=== PATIENT | female | born 1970 | race Caucasian/White ===

== ENCOUNTER → 2016-11-30 | Outpatient (CLI) | payer BC ==
--- NOTE | 2016-11-30 17:28 | RADIOLOGY REPORT (SQ) ---
EXAM DESCRIPTION: CHEST PA/LATERAL COMPLETED DATE/TIME: 11/30/2016 5:08 pm REASON FOR STUDY: COUGH COMPARISON: None. EXAM PARAMETERS: NUMBER OF VIEWS: two views TECHNIQUE: Digital Frontal and Lateral radiographic views of the chest acquired. RADIATION DOSE: NA LIMITATIONS: none FINDINGS: LUNGS AND PLEURA: No opacities, masses or pneumothorax. No pleural effusion. MEDIASTINUM AND HILAR STRUCTURES: No masses or contour abnormalities. HEART AND VASCULAR STRUCTURES: Heart normal size. No evidence for failure. BONES: No acute findings. HARDWARE: None in the chest. OTHER: No other significant finding. IMPRESSION: NO SIGNIFICANT RADIOGRAPHIC FINDING IN THE CHEST. TECHNICAL DOCUMENTATION: JOB ID: [id number] [email or web address]- All Rights Reserved
--- NOTE | 2016-11-30 18:17 | EKG REPORT ---
SEVERITY:- NORMAL ECG - SINUS RHYTHM : Confirmed by: Lucas Irizarry MD 30-Nov-2016 18:16:33
[2016-11-30 18:26] LABS: ABSOLUTE EOSINOPHILS # (AUTO) 0.1 10^3/uL (0.0-0.6); ABSOLUTE LYMPHOCYTES (AUTO) 1.7 10^3/uL (0.5-4.7); ABSOLUTE MONOCYTES (AUTO) 0.5 10^3/uL (0.1-1.4); ABSOLUTE NEUT (AUTO) 3.6 10^3/uL (1.7-8.2); BASOPHILS % (AUTO) 0.7 % (0-2); EOSINOPHILS % (AUTO) 2.3 % (0-6); HEMATOCRIT 38.8 % (36.0-47.0); HEMOGLOBIN 12.6 g/dL (12.0-15.5); LYMPHOCYTES % (AUTO) 28.8 % (13-45); MEAN CORPUSCULAR HEMOGLOBIN 25.2 pg (27.0-33.4); MEAN CORPUSCULAR HGB CONC 32.6 g/dL (32.0-36.0); MEAN CORPUSCULAR VOLUME 77 fl (80-97); MONOCYTES % (AUTO) 7.7 % (3-13); RED BLOOD COUNT 5.01 10^6/uL (3.72-5.28); RED CELL DISTRIBUTION WIDTH 15.1 % (11.5-14.0); SEGMENTED NEUTROPHILS % (AUTO) 60.5 % (42-78); WHITE BLOOD COUNT 5.9 10^3/uL (4.0-10.5)
[2016-11-30 18:47] LABS: ALANINE AMINOTRANSFERASE 53 U/L (9-52); ALBUMIN 4.4 g/dL (3.5-5.0); ALKALINE PHOSPHATASE 150 U/L (38-126); ANION GAP 13 (5-19); ASPARTATE AMINO TRANSFERASE 41 U/L (14-36); BILIRUBIN,DIRECT 0.4 mg/dL (0.0-0.4); BILIRUBIN,TOTAL 0.4 mg/dL (0.2-1.3); BLOOD UREA NITROGEN 12 mg/dL (7-20); CALCIUM 9.5 mg/dL (8.4-10.2); CARBON DIOXIDE 25 mmol/L (22-30); CHLORIDE 102 mmol/L (98-107); CREATININE RESULT 0.53 mg/dL (0.52-1.25); GLUCOSE 226 mg/dL (75-110); POTASSIUM 4.4 mmol/L (3.6-5.0); SODIUM 140.4 mmol/L (137-145); TOTAL PROTEIN 7.7 g/dL (6.3-8.2)
== END ==
LOC: OD 16:30
PROVIDERS: ATTEND Nurse Practitioner Family
DX: E66.01 Morbid (severe) obesity due to excess calories (principal); R03.0 Elevated blood-pressure reading, without diagnosis of hypertension; R05 Cough; R06.2 Wheezing
CPT/HCPCS: 36415; 71020; 80053; 80074; 83036; 84443; 84484; 85025; 87040; 93005; 93010

== ENCOUNTER 2019-08-30 10:10 | Outpatient (CLI) | payer BC ==
[2019-08-30] MEDS ORDERED: FERRIC CARBOXYMALTOSE 750 MG in NORMAL SALINE 250 ML IV PRN (10:22)
[2019-08-30] MEDS ORDERED: NORMAL SALINE 250 ML IV PRN (10:30)
[2019-08-30 10:44] VITALS: BP 125/55
== END 2019-08-30 11:34 | disposition home or self-care (01) ==
LOC: II 10:10 → 5TH 10:16 → II 11:34
PROVIDERS: ATTEND Internal Medicine Hematology & Oncology
DX: D50.9 Iron deficiency anemia, unspecified (principal); K90.9 Intestinal malabsorption, unspecified
CPT/HCPCS: 96365; J7050; J1439

== ENCOUNTER 2019-09-06 09:54 | Outpatient (CLI) | payer BC ==
[~2019-09-06 09:54] MED LIST: FERRIC CARBOXYMALTOSE 750 MG in NORMAL SALINE 250 ML IV PRN; NORMAL SALINE 250 ML IV PRN
[2019-09-06 10:16] VITALS: BP 111/48
== END 2019-09-06 10:47 | disposition home or self-care (01) ==
LOC: II 09:54 → 5TH 09:56 → II 10:47
PROVIDERS: ATTEND Internal Medicine Hematology & Oncology
DX: D50.9 Iron deficiency anemia, unspecified (principal); K90.9 Intestinal malabsorption, unspecified
CPT/HCPCS: 96365; J7050; J1439

== ENCOUNTER → 2019-11-15 | Outpatient (CLI) | payer BC ==
--- NOTE | 2019-11-15 09:01 | RADIOLOGY REPORT (SQ) ---
EXAM DESCRIPTION: MRI ABDOMEN WITHOUT IMAGES COMPLETED DATE/TIME: 11/15/2019 7:48 am REASON FOR STUDY: K86.89 OTHER SPECIFIED DISEASES OF PANCREAS K86.89 OTHER SPECIFIED DISEASES OF PA NCREAS COMPARISON: None. TECHNIQUE: Noncontrast MRCP. Source and MIP images reviewed. LIMITATIONS: Motion. FINDINGS: GALLBLADDER: Normal. INTRAHEPATIC DUCTS: Nondilated. EXTRAHEPATIC DUCTS: Common duct is normal caliber. No dilatation of the pancreatic duct. No ductal filling defects noted. PANCREAS: 1.5 cm nodule in the body. No ductal dilatation. LIVER, SPLEEN, KIDNEYS, ADRENALS: No significant abnormality. VESSELS: No evidence of aneurysm. Grossly appropriate flow voids in the major vascular structures. LUNG BASES: Bilateral lung nodules. OTHER: Adenopathy celiac and SMA axis. IMPRESSION: 1. Normal hepatobiliary system. 2. Pancreatic nodule. Regional adenopathy. 3. Pulmonary nodules suspicious for metastatic disease. TECHNICAL DOCUMENTATION: JOB ID: [id number] 2010 [employer]- All Rights Reserved Reading location - IP/workstation name: [email or web address]
== END ==
LOC: RAD 06:56
PROVIDERS: ATTEND Nurse Practitioner Family
DX: K86.89 Other specified diseases of pancreas (principal)
CPT/HCPCS: 74181

== ENCOUNTER → 2019-12-04 | Outpatient (CLI) | payer BC ==
--- NOTE | 2019-12-04 16:07 | RADIOLOGY REPORT (SQ) ---
EXAM DESCRIPTION: PET CT SKULL/THIGH IMAGES COMPLETED DATE/TIME: 12/04/2019 2:45 pm REASON FOR STUDY: K86.9 DISEASE OF PANCREAS, UNSPECIFIED R91.1 SOLITARY PULMONARY NODULE K86.9 DISE ASE OF PANCREAS, UNSPECIFIED R91.1 SOLITARY PULMONARY NODULE COMPARISON: MRI abdomen dated 11/15/2019 RADIONUCLIDE AND DOSE: 9.82 mCi F18 FDG The route of agent administration: Intravenous FASTING BLOOD SUGAR: 138 mg/dl CONTRAST TYPE AND DOSE: No CT contrast given. TECHNIQUE: Blood glucose level was verified. Above dose of FDG was injected intravenously. 2-D seg mented attenuation correction images were obtained from the base of the skull to the midthighs. Nonc ontrast CT images were obtained for attenuation correction and fusion with emission images. CT image s were performed without oral or intravenous contrast and are not sensitive for parenchymal lesions. A series of overlapping emission PET images were obtained. Images reviewed and manipulated at [facility] work station by the radiologist. Images stored on PACS. LIMITATIONS: None. FINDINGS: HEAD AND NECK: No areas of abnormal metabolic activity in the soft tissues of the head and neck. CHEST: Abnormal uptake in enlarged right mediastinal nodes. SUV ranges between 6 and 8 consistent wi th neoplasm. There is increased uptake in the left lower lobe pulmonary nodule. SUV is 3.55. SUV i n the right lower lobe pulmonary nodules is just above 3. ABDOMEN AND PELVIS: Increased activity in the region of the pancreatic head. SUV is greater than 6 c onsistent with neoplasm. These appear to represent peripancreatic nodes rather than abnormal uptake in the pancreas itself. Numerous smaller peripancreatic as well as periaortic nodes are noted. Most are metabolically inactive. A small node on image 149 demonstration SUV of 5.86. Additional periao rtic nodes demonstrated SUVs of just under 5 consistent with metastatic disease. PROXIMAL LOWER EXTREMITIES: No areas of abnormal metabolic activity in the soft tissues of the lower extremities. BONES: No abnormal metabolic activity in the visualized skeleton. ADDITIONAL CT FINDINGS: No additional significant findings on the noncontrast CT images. OTHER: No other significant findings. IMPRESSION: 1. Abnormal uptake in the right and left lower lobe pulmonary nodules consistent with me tastatic disease. There is right mediastinal adenopathy with an SUV range between 6 and 8 consistent with metastatic disease as well. 2. Multiple areas of increased metabolic activity surrounding the pancreatic head and aorta. These appear to represent periaortic as wells peripancreatic nodes and demonstrate activity suspicious for metastatic disease. No definite abnormal uptake within the pancreatic head itself. TECHNICAL DOCUMENTATION: JOB ID: [id number] 2010 [email or web address]- All Rights Reserved Reading location - IP/workstation name: [email or web address]
== END ==
LOC: RAD 07:41
PROVIDERS: ATTEND Surgery
DX: R91.1 Solitary pulmonary nodule (principal); K86.9 Disease of pancreas, unspecified
CPT/HCPCS: 78815; A9552

== ENCOUNTER 2020-01-24 20:44 | Emergency (ER) | payer OTHER, BC ==
[2020-01-24 20:56] VITALS: BP 133/67
[2020-01-24] MEDS ORDERED: NAPROXEN 250 MG TABLET PO ONE (21:04)
--- NOTE | 2020-01-24 21:04 | ER Document Report ---
HPI - HPI Patient complains to provider of: fall, knee pain Time Seen by Provider: 01/24/20 20:55 Pain Level: 3 Notes: 39-year-old female to emergency department with complaints of right knee pain that began tonight just prior to arrival. She states she was walking into the refrigerator at work when she tripped and fell landing on the right knee. She thinks she may have twisted down on it. She can walk on it but it does give her pain. She not taken anything for pain since the incident happened. She does not admit to hitting her head or having loss of consciousness. She denies any hip pain or back pain. - ROS Systems Reviewed and Negative: Yes All other systems reviewed and negative - CONSTITUTIONAL Constitutional: DENIES: Fever, Chills - EENT EENT: DENIES: Sore Throat, Ear Pain, Congestion - NEURO Neurology: DENIES: Headache, Weakness - CARDIOVASCULAR Cardiovascular: DENIES: Chest pain - RESPIRATORY Respiratory: DENIES: Trouble Breathing, Coughing - GASTROINTESTINAL Gastrointestinal: DENIES: Abdominal Pain, Nausea, Patient vomiting, Diarrhea - MUSCULOSKELETAL Musculoskeletal: REPORTS: Extremity pain - Right knee pain - DERM Skin Color: Normal Skin Problems: None Past Medical History - General Information source: Patient - Social History Smoking Status: Never Smoker Chew tobacco use (# tins/day): No Frequency of alcohol use: None Drug Abuse: None Family History: Reviewed & Not Pertinent - Past Medical History Cardiac Medical History: Reports: Hx Hypertension Denies: Hx Heart Attack Pulmonary Medical History: Denies: Hx Asthma Neurological Medical History: Denies: Hx Cerebrovascular Accident, Hx Seizures Endocrine Medical History: Reports: Hx Diabetes Mellitus Type 2 GI Medical History: Denies: Hx Hepatitis, Hx Hiatal Hernia, Hx Ulcer Infectious Medical History: Denies: Hx Hepatitis Past Surgical History: Denies: Hx Mastectomy, Hx Open Heart Surgery, Hx Pacemaker - Immunizations Hx Diphtheria, Pertussis, Tetanus Vaccination: Yes Vertical Provider Document - CONSTITUTIONAL Agree With Documented VS: Yes Exam Limitations: No Limitations General Appearance: WD/WN, No Apparent Distress - INFECTION CONTROL TRAVEL OUTSIDE OF THE [place] IN LAST 30 DAYS: No - HEENT HEENT: Atraumatic, Normocephalic, PERRLA - NECK Neck: Normal Inspection, Supple - RESPIRATORY Respiratory: Breath Sounds Normal, No Respiratory Distress. negative: Rales, Rhonchi, Wheezing - CARDIOVASCULAR Cardiovascular: Regular Rate, Regular Rhythm, No Murmur - GI/ABDOMEN Gastrointestinal: Abdomen Soft, Abdomen Non-Tender, No Organomegaly Notes: Obesity - BACK Back: Normal Inspection Notes: Nontender to palpation over the midline cervical, thoracic, lumbar spine with no step-off or deformity. - MUSCULOSKELETAL/EXTREMETIES Notes: There is tenderness to palpation over the anterior right knee joint with mild edema but no ecchymosis or deformity. She has full range of motion against resistance with 5 out of 5 strength in flexion extension. Nontender to palpation over the right hip, right ankle, foot. DP pulses intact and equal. - NEURO Level of Consciousness: Awake, Alert, Appropriate Motor/Sensory: No Motor Deficit, No Sensory Deficit - DERM Integumentary: Warm, Dry, No Rash Course - Vital Signs Vital signs: Temp Pulse Resp BP Pulse Ox 97.5 F 91 20 133/67 H 94 01/24/20 20:54 01/24/20 20:54 01/24/20 20:54 01/24/20 20:54 01/24/20 20:54 - Diagnostic Test Radiology reviewed: Image reviewed, Reports reviewed Discharge - Discharge Clinical Impression: Contusion of left lower leg, initial encounter Right knee sprain Qualifiers: Encounter type: initial encounter Involved ligament of knee: unspecified ligament Qualified Code(s): S83.91XA - Sprain of unspecified site of right knee, initial encounter Contusion of right knee Qualifiers: Encounter type: initial encounter Qualified Code(s): S80.01XA - Contusion of right knee, initial encounter Fall Qualifiers: Encounter type: initial encounter Qualified Code(s): W19.XXXA - Unspecified fall, initial encounter Condition: Stable Disposition: HOME, SELF-CARE Instructions: Ice & Elevation ([facility]), Sprained Knee ([facility]) Additional Instructions: Elevate the knee and ice it 3 times a day for 20 minutes at a time. Use Mychal wrap for support. If the knee is not improved in 1 week please follow-up with orthopedist. Take pain medicine as prescribed. Ice the lower left leg as well. Return if you have any worsening symptoms. Prescriptions: Cyclobenzaprine HCl [Flexeril 10 mg Tablet] 10 mg PO TID #15 tablet Naproxen [Naprosyn] 500 mg PO BID #20 tablet Forms: Return to Work Referrals: CARMEN KUHN JR, DO [ACTIVE PROVISIONAL STAFF] - Follow up in 1 week (for orthopedic follow up)
--- NOTE | 2020-01-24 22:11 | RADIOLOGY REPORT (SQ) ---
EXAM DESCRIPTION: X-ray left tibia and fibula 2 views COMPLETED DATE/TME: 01/24/2020 21:26 CLINICAL HISTORY: 49 years, Female, fall, left leg pain COMPARISON: None. NUMBER OF VIEWS: TECHNIQUE: LIMITATIONS: None. FINDINGS: No fracture or dislocation. There are degenerative changes involving the knee joint. Mineralization of bone appears normal. IMPRESSION: No fracture or dislocation. copyright 2010 [employer]- All Rights Reserved
--- NOTE | 2020-01-24 22:13 | RADIOLOGY REPORT (SQ) ---
EXAM DESCRIPTION: X-ray right knee 4 views COMPLETED DATE/TME: 01/24/2020 21:26 CLINICAL HISTORY: 49 years, Female, fall, right knee pain COMPARISON: None. NUMBER OF VIEWS: TECHNIQUE: LIMITATIONS: None. FINDINGS: No fracture or dislocation. No evidence of knee joint effusion. There are degenerative changes involving all 3 knee joint compartments. IMPRESSION: No fracture or dislocation. Degenerative changes. copyright 2010 [employer]- All Rights Reserved
== END 2020-01-24 23:00 | disposition home or self-care (01) ==
LOC: ER 20:44
DX: S83.91XA Sprain of unspecified site of right knee, initial encounter (principal); S80.12XA Contusion of left lower leg, initial encounter; S80.01XA Contusion of right knee, initial encounter; M25.561 Pain in right knee; W19.XXXA Unspecified fall, initial encounter; Y93.89 Activity, other specified; Y99.0 Civilian activity done for income or pay; I10 Essential (primary) hypertension; E11.9 Type 2 diabetes mellitus without complications
CPT/HCPCS: 99283

== ENCOUNTER → 2020-03-18 | Outpatient (CLI) | payer BC ==
--- NOTE | 2020-03-18 10:48 | RADIOLOGY REPORT (SQ) ---
EXAM DESCRIPTION: CT CHEST WITH IMAGES COMPLETED DATE/TIME: 03/18/2020 9:13 am REASON FOR STUDY: SOLID PULM NODULE AND ABDOMINAL LYMPHADE R91.1 SOLITARY PULMONARY NODULE K86.89 OTHER SPECIFIED DISEASES OF PANCREAS COMPARISON: PET scan dated 12/04/2019. TECHNIQUE: CT scan of the chest performed using helical scanning technique with dynamic intravenous contrast injection. Images reviewed with lung, soft tissue and bone windows. Reconstructed coronal and sagittal MPR and MIP images reviewed. All images stored on PACS. All CT scanners at this facility use dose modulation, iterative reconstruction, and/or weight based d osing when appropriate to reduce radiation dose to as low as reasonably achievable (ALARA). [facility]: Dose Right [facility]: CareDose [facility]: Dose Right [facility]: Teradose 4D [facility]: [employer] CONTRAST TYPE AND DOSE: 100 mL Omnipaque 350- low osmolar. RENAL FUNCTION: Creatinine 0.9. RADIATION DOSE: CT Rad equipment meets quality standard of care and radiation dose reduction techniq ues were employed. CTDIvol: 23.1 - 28.8 mGy. DLP: 3067 mGy-cm. . LIMITATIONS: None. FINDINGS: LUNGS AND PLEURA: Irregular pulmonary nodules in the lower lobes. The hypermetabolic nodu le in the right lower lobe (axial series 6, image 97) currently measures 1.9 cm with prior measuremen t of 1.7 cm. The hypermetabolic nodule in the left lower lobe (axial series 6, image 73) currently m easures 2.2 cm with prior measurement of 2.2 cm. Additional faint irregular nodules and both lower l obes are unchanged. There are scattered faint ground-glass opacities in both lungs. No pleural effu gabriel. HILAR AND MEDIASTINAL STRUCTURES: Enlarged upper mediastinal lymph node, posterior to the trachea (ax ial series 2, image 9). This measures 2.1 by 3.7 cm with prior measurement 2.1 x 4.2 cm. HEART AND VASCULAR STRUCTURES: No aneurysm or dissection. 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 No central pulmonary emboli. No pericardial effusion. HARDWARE: None in the chest. UPPER ABDOMEN: c THYROID AND OTHER SOFT TISSUES: No masses. No adenopathy. BONES: No significant finding. OTHER: No other significant finding. IMPRESSION: BILATERAL PULMONARY NODULES DESCRIBED ABOVE WITH MINIMAL CHANGE FROM THE PRIOR STUDY. THE HYPERMETABOLIC LYMPH NODE IN THE UPPER MEDIASTINUM IS SLIGHTLY SMALLER. SCATTERED HAZY GROUND- GLASS APPEARANCE THROUGHOUT BOTH LUNGS, SIMILAR TO THE PRIOR STUDY BUT GENERALLY IMPROVED. NO NEW FI NDINGS. TECHNICAL DOCUMENTATION: JOB ID: [id number] Quality ID # [id number]: Final reports with documentation of one or more dose reduction techniques (e.g., Au tomated exposure control, adjustment of the mA and/or kV according to patient size, use of iterative reconstruction technique) 2010 [employer]- All Rights Reserved Reading location - IP/workstation name: [email or web address]
--- NOTE | 2020-03-18 11:06 | RADIOLOGY REPORT (SQ) ---
EXAM DESCRIPTION: CT ABDOMEN WITH IV ORAL CONT IMAGES COMPLETED DATE/TIME: 03/18/2020 9:13 am REASON FOR STUDY: SOLID PULM NODULE AND ABDOMINAL LYMPHADE R91.1 SOLITARY PULMONARY NODULE K86.89 OTHER SPECIFIED DISEASES OF PANCREAS COMPARISON: PET scan dated 12/04/2019. TECHNIQUE: CT scan of the abdomen performed with intravenous and with oral contrast using helical sc anning technique with dynamic intravenous contrast injection. Images reviewed with lung, soft tissue, and bone windows. Reconstructed coronal and sagittal MPR images reviewed. Delayed images for evaluat ion of the urinary system also acquired and evaluated. All images stored on PACS. All CT scanners at this facility use dose modulation, iterative reconstruc tion, and/or weight based dosing when appropriate to reduce radiation dose to as low as reasonably ac hievable (ALARA). [facility]: Dose Right [facility]: CareDose [facility]: Dose Right [facility]: Teradose 4D [facility]: [employer] CONTRAST TYPE AND DOSE: contrast/concentration: Isovue 350.00 mmol/ml; Total Contrast Delivered: 100 .0 ml; Total Saline Delivered: 72.0 ml RENAL FUNCTION: Creatinine 0.9. RADIATION DOSE: . LIMITATIONS: None. FINDINGS: LOWER CHEST: See separate report of the CT of the chest. LIVER: Normal size. No masses. No dilated ducts. SPLEEN: Normal size. No focal lesions. PANCREAS: No masses. No significant calcifications. No adjacent inflammation or peripancreatic fluid collections. Pancreatic duct not dilated. GALLBLADDER: No identified stones by CT criteria. No inflammatory changes to suggest cholecystitis. ADRENAL GLANDS: No significant masses or asymmetry. RIGHT KIDNEY AND URETER: No solid masses. No significant calcifications. No hydronephrosis or hyd roureter. LEFT KIDNEY AND URETER: No solid masses. No significant calcifications. No hydronephrosis or hydr oureter. AORTA AND VESSELS: No aneurysm. No dissection. Renal arteries, SMA, celiac without stenosis. RETROPERITONEUM: Numerous enlarged lymph nodes surrounding the pancreas and extending into the upper retroperitoneum. A few represent lymph nodes as follows: 3.1 cm lymph node between the pancreatic head and liver, anterior to the inferior vena cava (axial se serena 3, image 32). Previous measurement 3.4 cm. 2.7 cm lymph node superior and anterior to the pancreatic body (axial series 3, image 26). Previous measurement 2.7 cm. 1.4 cm right periaortic lymph node (axial series 3, image 39). Previous measurement 1.3 cm. 1.3 cm lymph node anterior to the inferior vena cava (axial series 3, image 44). Previous measuremen t 1.1 cm. 1.9 cm left periaortic lymph node (axial series 3, image 37). Previous measurement 2.1 cm. There are additional smaller retroperitoneal lymph nodes, generally unchanged. BOWEL AND PERITONEAL CAVITY: There are several slightly enlarged mesenteric lymph nodes which are unc hanged from the prior study. On the prior PET scan these were not noticeably hypermetabolic. No mas ses or inflammatory changes. No free fluid or peritoneal masses. APPENDIX: Not visualized. ABDOMINAL WALL: No masses. No hernias. BONES: No significant or acute findings. OTHER: No other significant finding. IMPRESSION: RETROPERITONEAL ADENOPATHY DESCRIBED ABOVE. VERY LITTLE CHANGE FROM THE PRIOR STUDY. MILD MESENTERIC ADENOPATHY ALSO UNCHANGED. NO SIGNIFICANT PROGRESSION OR NEW FINDINGS. TECHNICAL DOCUMENTATION: JOB ID: [id number] Quality ID # [id number]: Final reports with documentation of one or more dose reduction techniques (e.g., Au tomated exposure control, adjustment of the mA and/or kV according to patient size, use of iterative reconstruction technique) 2010 [employer]- All Rights Reserved Reading location - IP/workstation name: [email or web address]
== END ==
LOC: RAD 08:31
PROVIDERS: ATTEND Internal Medicine Hematology & Oncology
DX: R91.1 Solitary pulmonary nodule (principal); K86.89 Other specified diseases of pancreas
CPT/HCPCS: 71260; 74160; 82565